=== PATIENT | female | born 1960 | race Caucasian/White ===

== ENCOUNTER → 2016-11-03 | Outpatient (CLI) | payer BC ==
[~2016-11-03] MED LIST: ADVAIR 100/28 DISKUS IH; ALLEGRA60 MG PO; CALCIUM 600MG+D1 TAB PO; ESCITALOPRAM; ESTROVAN; FISH OIL CONC1000 MG PO; NORCO 325 MG-51 TAB PO; PHENERGAN 25 TA25 MG PO; PROVENTIL0.09 MG/A1 IH; SINGULAIR10 MG PO; VENTOLIN0.09 MG IH; VIT D; [UNRECOGNIZED DRUG - REMARK]
== END ==
LOC: MC.RAD 07:54
DX: Z12.31 Encounter for screening mammogram for malignant neoplasm of breast (principal)

== ENCOUNTER 2017-02-21 00:11 | Observation (INO) | payer BC ==
[2017-02-21] VITALS (8 sets, daily range): BP systolic 81–101; BP diastolic 41–62; PULSE 63–86; TEMP 97.3–98.9
[~2017-02-21] VITALS: Ht 170.2 cm; Wt 63.0 kg
[~2017-02-21 00:11] MED LIST changes: -CALCIUM 600MG+D1 TAB PO
[2017-02-21 01:15] LABS: BASO % 0.4 % (0.0-2.0); EOS # 0.2 (0.0-0.7); EOS % 1.6 % (0-4.0); GRAN # 7.8 (1.4-6.5); GRAN % 82.2 % (42.2-75.2); HEMOGLOBIN 13.9 g/dl (12.5-16.0); LYMPH # 1.2 (1.2-3.4); LYMPH % 12.8 % (20.0-51.0); MEAN CELL VOLUME 89 fl (80.0-100.0); MEAN CORPUSCULAR HEMOGLOBIN 30 pg (27.0-31.0); MEAN CORPUSCULAR HGB CONC 34 g/dl (33.0-37.0); MEAN PLATELET VOLUME 10.2 fl (7.4-10.4); MONO # 0.3 (0.1-0.6); MONO % 2.7 % (1.7-9.3); PLATELET COUNT 195 K/mm3 (130-400); RED BLOOD COUNT 4.62 M/mm3 (4.10-5.30); REDCELL DISTRIBUTION WIDTH-CV 12.6 % (11.5-14.5); WHITE BLOOD COUNT 9.4 K/mm3 (4.8-10.8)
[2017-02-21 01:23] LABS: ADJUSTED CALCIUM 8.7 mg/dL (8.4-10.2); ALBUMIN 4.4 gm/dL (3.5-5.0); BILIRUBIN,TOTAL 0.7 mg/dL (0.0-1.0); CREATININE, serum 0.78 mg/dL (0.52-1.25); POTASSIUM 4.3 mmol/L (3.4-5.0); TOTAL PROTEIN 7.8 gm/dL (6.4-8.2)
[2017-02-21 03:14] LABS: PH 6 (5-8); URINE APPEARANCE Cloudy; URINE BILIRUBIN Negative (NEGATIVE); URINE BLOOD 3+ (NEGATIVE); URINE COLOR Yellow; URINE GLUCOSE Negative (NEGATIVE); URINE KETONE 2+ (NEGATIVE); URINE UROBILINOGEN Negative (NEGATIVE)
[2017-02-21 03:15] LABS: URINE WBC 0-2 /hpf
[2017-02-21 03:16] LABS: URINE RBC 20-50 /hpf
[2017-02-21] MEDS ORDERED: CALCIUM 600MG+D1 TAB PO (04:23)
== END 2017-02-21 19:55 | disposition home or self-care (01) ==
LOC: COL.ER 00:11 → SURG 03:02
PROVIDERS: Emergency Medicine
DX: N20.1 Calculus of ureter (principal); J45.909 Unspecified asthma, uncomplicated; F41.9 Anxiety disorder, unspecified; R11.0 Nausea
CPT/HCPCS: C1769; C1894; C2617; G0378; J0690; J1100; J1885; J2270; J2405; J2704; J3010; J7030; Q9967

== ENCOUNTER → 2018-05-22 | Outpatient (CLI) | payer BC ==
[~2018-05-22] MED LIST changes: +CALCIUM 600MG+D1 TAB PO
== END ==
LOC: COL.RAD 07:06
DX: K76.0 Fatty (change of) liver, not elsewhere classified (principal)

== ENCOUNTER → 2018-06-16 | Outpatient (CLI) | payer BC | LOC: COL.RAD 06:57 | DX: K76.0 Fatty (change of) liver, not elsewhere classified (principal); R19.7 Diarrhea, unspecified | CPT/HCPCS: A9537 ==

== ENCOUNTER 2020-08-24 10:07 | Inpatient (IN) | payer BC ==
[~2020-08-24] VITALS: Ht 167.6 cm; Wt 61.0 kg
[2020-08-24 10:32] LABS: COLLECTION METHOD CLEAN CATCH
[2020-08-24 10:39] LABS: BASO % 0.2 % (0.0-2.0); EOS # 0.1 (0.0-0.7); EOS % 0.8 % (0-4.0); GRAN # 13.7 (1.4-6.5); GRAN % 81.7 % (42.2-75.2); HEMOGLOBIN 15.4 g/dl (12.5-16.0); LYMPH % 11.9 % (20.0-51.0); MEAN CELL VOLUME 88 fl (80.0-100.0); MEAN CORPUSCULAR HEMOGLOBIN 30 pg (27.0-31.0); MEAN CORPUSCULAR HGB CONC 34 g/dl (33.0-37.0); MEAN PLATELET VOLUME 9.6 fl (7.4-10.4); MONO # 0.9 (0.1-0.6); MONO % 5.1 % (1.7-9.3); PLATELET COUNT 300 K/mm3 (130-400); RED BLOOD COUNT 5.21 M/mm3 (4.10-5.30); REDCELL DISTRIBUTION WIDTH-CV 12.9 % (11.5-14.5)
[2020-08-24] MEDS ORDERED: MERIBIN5 MG PO (10:42)
[2020-08-24 10:43] LABS: MUCOUS Present /lpf; PH 6 (5-8); SQUAMOUS EPITHELIAL 0-2 /hpf; URINE APPEARANCE Hazy; URINE BACTERIA None Seen /hpf; URINE BILIRUBIN Negative (NEGATIVE); URINE BLOOD 1+ (NEGATIVE); URINE COLOR Yellow; URINE GLUCOSE Negative (NEGATIVE); URINE KETONE Negative (NEGATIVE); URINE LEUKOCYTE ESTERASE Negative (NEGATIVE); URINE NITRATE Negative (NEGATIVE); URINE PROTEIN(semi-quant) 1+ (NEGATIVE); URINE UROBILINOGEN Negative (NEGATIVE)
[2020-08-24 10:48] LABS: ALBUMIN 4.6 gm/dL (3.5-5.0); BILIRUBIN,TOTAL 1.1 mg/dL (0.0-1.0); CALCIUM 9.1 mg/dL (8.4-10.2); CREATININE, serum 0.91 (0.52-1.25); POTASSIUM 3.9 mmol/L (3.4-5.0); TOTAL PROTEIN 7.7 gm/dL (6.4-8.2)
[2020-08-24 13:15] VITALS: BP 92/56; PULSE 64; TEMP 97.6
[2020-08-24 15:20] VITALS: BP 95/56; PULSE 88; TEMP 98.4
--- NOTE | 2020-08-24 17:18 | NUR ---
PT TRANSFERRED VIA WC BY ED NURSE TO ROOM 322. PT ORIENTED TO ROOM BY THIS NURSE, PT UP TO RESTROOM AT THIS TIME. REPORTED PAIN OF 4/10 AND RATED THIS TOLERABLE. WARM BLANKET AND CALL LIGHT GIVEN. ORDERS FOR FLUIDS AND ABX TO BE HUNG, IV MORPHINE 2 MG GIVEN AT THIS TIME. PT LATER REPORTS PAIN OF 2/10.
[2020-08-24 19:27] VITALS: BP 88/54; PULSE 98; TEMP 98.6
--- NOTE | 2020-08-24 22:00 | NUR ---
Patient resting in bed. Patient requested morphine, given per orders. Patient has no other complaints.
[2020-08-24 23:26] VITALS: BP 82/41; PULSE 101; TEMP 98.7
--- NOTE | 2020-08-25 00:30 | NUR ---
Patient reports nausea. Gave zofran per orders.
[2020-08-25 01:59] VITALS: BP 102/59
[2020-08-25 03:50] VITALS: BP 88/49; PULSE 98; TEMP 98.4
[2020-08-25 06:53] LABS: BASO % 0.3 % (0.0-2.0); EOS # 0.2 (0.0-0.7); EOS % 1.1 % (0-4.0); GRAN # 12.5 (1.4-6.5); GRAN % 79.1 % (42.2-75.2); HEMATOCRIT 38.4 % (37.0-47.0); LYMPH # 1.8 (1.2-3.4); LYMPH % 11.3 % (20.0-51.0); MEAN CELL VOLUME 90 fl (80.0-100.0); MEAN CORPUSCULAR HEMOGLOBIN 31 pg (27.0-31.0); MEAN CORPUSCULAR HGB CONC 34 g/dl (33.0-37.0); MEAN PLATELET VOLUME 9.9 fl (7.4-10.4); MONO # 1.2 (0.1-0.6); MONO % 7.8 % (1.7-9.3); PLATELET COUNT 212 K/mm3 (130-400); RED BLOOD COUNT 4.26 M/mm3 (4.10-5.30); REDCELL DISTRIBUTION WIDTH-CV 12.9 % (11.5-14.5)
[2020-08-25 06:59] VITALS: BP 94/55; PULSE 95; TEMP 98.2
[2020-08-25 07:06] LABS: ALBUMIN 3.7 gm/dL (3.5-5.0); BILIRUBIN,TOTAL 0.7 mg/dL (0.0-1.0); CALCIUM 8.3 mg/dL (8.4-10.2); CREATININE, serum 0.86 (0.52-1.25); POTASSIUM 3.8 mmol/L (3.4-5.0); TOTAL PROTEIN 6.6 gm/dL (6.4-8.2)
--- NOTE | 2020-08-25 08:00 | NUR ---
Patient resting in bed at this time. Patient rouses easily and is alert and oriented, answers questions appropriately while awake. Patient c/o some epigastric pain and a headache. Administered PRN tylenol for the headache and patient stated she wanted to wait on the morphine. Also administered PRN zofran per patient request. Patient denies further needs, call light within reach.
--- NOTE | 2020-08-25 10:36 | NUR ---
LEEANNE met with the patient to discuss discharge plan. The patient lives in [place] with her , Antonio (ph#[phone]) and their son. She reports independence with ADLs and does not have any DME. The patient's PCP is Dr. Rossana Miranda and she receives her medications from [facility]. She reports no difficulties obtaining her meds. The patient does not have a DPOA-HC, but she was interested in obtaining a form. LEEANNE provided. The patient plans to return home with her family upon discharge. LEEANNE contacted and reviewed the d/c plan with he patient's , Antonio. He had no questions or concerns about the patient returning home upon discharge. No additional needs at this time.
[2020-08-25 11:07] VITALS: BP 89/46; PULSE 79; TEMP 98
[2020-08-25 16:20] VITALS: BP 107/58; PULSE 83; TEMP 97.6
--- NOTE | 2020-08-25 18:32 | NUR ---
Patient resting in bed, at bedside. Patient remains alert and oriented. Administered PRN pain and nausea medication per patient request. Patient denies further needs, call light within reach.
[2020-08-25 19:17] VITALS: BP 102/54; PULSE 85; TEMP 97.2
--- NOTE | 2020-08-25 19:36 | NUR ---
Resting in bed. Assessment complete. Lungs clear. Heart sounds normal. Bowels active x4. Pulses present throughout. No edema noted. IV right AC infusing without complications. Reports 6/10 ABD pain. Given PRN morphine at this time. Denies other needs. Call light in reach.
[2020-08-26] VITALS (7 sets, daily range): BP systolic 100–110; BP diastolic 51–61; PULSE 81–92; TEMP 97.9–99
--- NOTE | 2020-08-26 00:11 | NUR ---
Provided with PRN zofran and tylenol for nausea and "discomfort" of 6/10 at this time. Denies other needs. Will monitor.
--- NOTE | 2020-08-26 05:46 | NUR ---
Patient required PRN tylenol, morphine, and zofran. Denies pain this AM. Otherwise uneventful night. Resting in bed this AM. Call light in reach.
--- NOTE | 2020-08-26 07:21 | NUR ---
Report given to GILBERTO Nair
[2020-08-26 07:57] LABS: BASO % 0.3 % (0.0-2.0); EOS # 0.5 (0.0-0.7); EOS % 4.2 % (0-4.0); GRAN # 9.7 (1.4-6.5); GRAN % 76.1 % (42.2-75.2); HEMATOCRIT 37.3 % (37.0-47.0); HEMOGLOBIN 12.4 g/dl (12.5-16.0); LYMPH # 1.4 (1.2-3.4); LYMPH % 11.1 % (20.0-51.0); MEAN CELL VOLUME 90 fl (80.0-100.0); MEAN CORPUSCULAR HEMOGLOBIN 30 pg (27.0-31.0); MEAN CORPUSCULAR HGB CONC 33 g/dl (33.0-37.0); MEAN PLATELET VOLUME 10.3 fl (7.4-10.4); PLATELET COUNT 182 K/mm3 (130-400); RED BLOOD COUNT 4.13 M/mm3 (4.10-5.30); REDCELL DISTRIBUTION WIDTH-CV 12.8 % (11.5-14.5)
--- NOTE | 2020-08-26 08:00 | NUR ---
Patient resting in bed at this time. Patient reports pain and nausea are well controlled at this time. IVF infusing per order. Patient is tolerating small amounts of clear liquids well. Denies further needs, call light within reach.
[2020-08-26 08:03] LABS: ALBUMIN 3.6 gm/dL (3.5-5.0); BILIRUBIN,TOTAL 0.7 mg/dL (0.0-1.0); CALCIUM 8.3 mg/dL (8.4-10.2); CREATININE, serum 0.71 (0.52-1.25); POTASSIUM 3.5 mmol/L (3.4-5.0); TOTAL PROTEIN 6.4 gm/dL (6.4-8.2)
--- NOTE | 2020-08-26 10:06 | NUR ---
Initial visit; Patient thanked Phlebotomist for looking in on her and requested that Phlebotomist keep her in her prayers. Phlebotomist offered God's blessings.
--- NOTE | 2020-08-26 17:38 | NUR ---
Patient in bedside recliner eating dinner at this time. Patient has had no complaints of pain or nausea today. Patient has ambulated several times in the hallway, and is planning to shower independently after she finishes with dinner. Denies furthe needs at this time, call light within reach.
--- NOTE | 2020-08-26 21:45 | NUR ---
Pt. sitting up in bed at this time. Pt. is A&OX3, assessment complete. IV to rt. ac patent, IV fluids infusing per orders. Pt. reports abd. pain at a 2 and nausea, giving meds per orders. Pt. denies further needs, call light within reach.
[2020-08-27 04:04] VITALS: BP 123/74; PULSE 75; TEMP 98.5
[2020-08-27 06:41] LABS: ALBUMIN 2.9 gm/dL (3.5-5.0); BILIRUBIN,TOTAL 0.5 mg/dL (0.0-1.0); CREATININE, serum 0.66 (0.52-1.25); POTASSIUM 3.3 mmol/L (3.4-5.0); TOTAL PROTEIN 5.6 gm/dL (6.4-8.2)
[2020-08-27 08:30] VITALS: BP 112/62; PULSE 84; TEMP 97.5
[2020-08-27 12:31] VITALS: BP 108/56; PULSE 88; TEMP 98
[2020-08-27 16:00] VITALS: BP 112/57; PULSE 81; TEMP 98.1
--- NOTE | 2020-08-27 17:39 | NUR ---
Patient resting in bedside recliner eating dinner at this time. IVF continue per order. Patient has ambulated in the halls several times today, no c/o pain or nausea. Patient denies needs at this time, call light within reach.
[2020-08-27 19:03] VITALS: BP 113/63; PULSE 86; TEMP 98.4
--- NOTE | 2020-08-27 20:00 | NUR ---
Report received, assumed care for usability specialist. Assessment complete. VS stable. A&Ox3. Denies pain/shortness of breath. Rating pain 3/10 on pain scale-described as intermittent cramping-denies needing intervention. Tolerating clear liquid diet. +flatus. Has been ambulating in hallways. Plan of care discussed for this shift to include HS meds/pain meds/calling for questions/concerns. Denies current needs. Call light in reach. Will monitor.
[2020-08-27 23:29] VITALS: BP 111/57; PULSE 79; TEMP 98.1
--- NOTE | 2020-08-28 00:43 | NUR ---
Resting eyes closed. No s/s of pain noted.
[2020-08-28 03:22] VITALS: BP 116/59; PULSE 78; TEMP 97.8
--- NOTE | 2020-08-28 05:27 | NUR ---
Rested well this shift. States she feels better this AM than she has the last week. Denies pain. States she has a little bit of nausea but states she doesnt want any zofran right now. Denies questions/concerns. Call light in reach. Will monitor.
[2020-08-28 06:33] LABS: BASO % 0.5 % (0.0-2.0); EOS # 0.5 (0.0-0.7); EOS % 5.3 % (0-4.0); GRAN # 5.9 (1.4-6.5); GRAN % 67.7 % (42.2-75.2); HEMOGLOBIN 11.2 g/dl (12.5-16.0); LYMPH # 1.6 (1.2-3.4); LYMPH % 18.6 % (20.0-51.0); MEAN CELL VOLUME 90 fl (80.0-100.0); MEAN CORPUSCULAR HEMOGLOBIN 29 pg (27.0-31.0); MEAN CORPUSCULAR HGB CONC 33 g/dl (33.0-37.0); MEAN PLATELET VOLUME 9.6 fl (7.4-10.4); MONO # 0.7 (0.1-0.6); MONO % 7.7 % (1.7-9.3); PLATELET COUNT 207 K/mm3 (130-400); RED BLOOD COUNT 3.81 M/mm3 (4.10-5.30); REDCELL DISTRIBUTION WIDTH-CV 12.7 % (11.5-14.5)
[2020-08-28 06:35] LABS: HEMATOCRIT 34.2 % (37.0-47.0)
[2020-08-28 06:45] LABS: ALBUMIN 3.1 gm/dL (3.5-5.0); BILIRUBIN,TOTAL 0.5 mg/dL (0.0-1.0); CALCIUM 8.3 mg/dL (8.4-10.2); CREATININE, serum 0.66 (0.52-1.25); POTASSIUM 3.7 mmol/L (3.4-5.0); TOTAL PROTEIN 5.9 gm/dL (6.4-8.2)
[2020-08-28 07:50] VITALS: BP 107/51; PULSE 85; TEMP 98.9
--- NOTE | 2020-08-28 10:21 | NUR ---
PT INDEPENDENT IN ROOM AND HALLS. PT WEARING MASK WHEN OUT OF ROOM. IV TO RAC INFILTRATED AND NEW SITE OBTAINED TO R HAND. 20 GA PT TOLERATED WELL.
[2020-08-28 11:38] VITALS: BP 103/62; PULSE 82; TEMP 97.9
[2020-08-28 15:25] VITALS: BP 99/58; PULSE 87; TEMP 98.6
--- NOTE | 2020-08-28 20:30 | NUR ---
Pt. sitting up in bed at this time. Pt. is A&OX3, assessment complete. IV to rt. hand patent, IV fluids infusing per orders. Pt. denies pain or other needs, call light within reach.
[2020-08-28 20:32] VITALS: BP 102/52; PULSE 85; TEMP 98.2
[2020-08-29] VITALS (12 sets, daily range): BP systolic 92–113; BP diastolic 55–66; PULSE 75–91; TEMP 97.5–98.7
--- NOTE | 2020-08-29 11:19 | NUR ---
LR TO GRAVITY FLOW TUBING. PATIENT CONSENT FORM ON CHART. PATIENT TAKEN TO [facility] VIA BED BY GILBERTO BLAIR. WILL WAIT FOR PATIENT ARRIVAL BACK TO ROOM 322-2.
--- NOTE | 2020-08-29 13:20 | NUR ---
PATIENT ARRIVED BACK TO ROOM 322-2 FROM PACU. VSS. WILL CONTINUE TO MONITOR.
--- NOTE | 2020-08-29 13:50 | NUR ---
ABDOMINAL LAP SITES X3 DRESSED WITH BANDAIDS AND ARE CD&I. POST-OP VSS. PATIENT TOLERATING SIPS AND CHIPS. PATIENT DENIES COMPLAINTS OF PAIN. PATIENT AMBULATED WITH STAFF TO BATHROOM. PATIENT VOIDING SUFFICIENTLY. PATIENT RECONNECTED TO POST-OP MONITORING. SCD'S TO BLE. CALL LIGHT WITHIN REACH.
--- NOTE | 2020-08-29 17:05 | NUR ---
PATIENT TOLERATING A GENERAL DIET WITHOUT COMPLAINTS OF PAIN, NAUSEA OR VOMITING. POST-OP VITALS STABLE AND COMPLETE. PATIENT DENIES NEEDS AT THIS TIME.
--- NOTE | 2020-08-29 19:00 | NUR ---
BEDSIDE REPORT GIVEN TO GILBERTO YANEZ.
--- NOTE | 2020-08-29 20:40 | NUR ---
Pt. sitting up in bed. Pt. is A&OX3, assessment complete. INT to rt. hand patent. Pt. reported pain at a 4 on pain scale, gave pain meds per orders. Pt. denies further needs, call light within reach.
[2020-08-30 00:51] VITALS: BP 94/53; PULSE 70; TEMP 97.7
[2020-08-30 04:15] VITALS: BP 100/60; PULSE 78; TEMP 97.4
[2020-08-30 06:10] LABS: ALBUMIN 3.5 gm/dL (3.5-5.0); BILIRUBIN,TOTAL 0.4 mg/dL (0.0-1.0); CALCIUM 8.6 mg/dL (8.4-10.2); CREATININE, serum 0.8 (0.52-1.25); POTASSIUM 4.2 mmol/L (3.4-5.0); TOTAL PROTEIN 6.5 gm/dL (6.4-8.2)
[2020-08-30 07:39] VITALS: BP 97/57; PULSE 85; TEMP 97.8
--- NOTE | 2020-08-30 09:00 | NUR ---
Patient alert and oriented, answers questions appropriately. See assessment. Abdomen soft, non tender, non distended. Bowel sounds active x4 quads. +Flatus. +Bowel movement. Urinating adequate amounts. Lap sites to abdomen with edges well approximated, no redness or drainage noted. Post op exercises reviewed with patient. No c/o at this time.
--- NOTE | 2020-08-30 10:33 | NUR ---
Discharge instructions reviewed with patient, verbalized understanding. Discharged via wheelchair to auto/home with spouse at 1033.
== END 2020-08-30 10:33 | disposition home or self-care (01) | DRG 419 ==
LOC: COL.ER 10:07 → SURG 11:41
PROVIDERS: Emergency Medicine; Surgery; ADMIT Surgery
PROC: BF121ZZ Fluoroscopy of Gallbladder using Low Osmolar Contrast (ICD-10-PCS; 2020-08-29)
PROC: 0FT44ZZ Resection of Gallbladder, Percutaneous Endoscopic Approach (ICD-10-PCS; principal; 2020-08-29 11:00)
DX: K85.10 Biliary acute pancreatitis without necrosis or infection (principal); E78.5 Hyperlipidemia, unspecified; J45.909 Unspecified asthma, uncomplicated
CPT/HCPCS: OP; G0378; J0690; J1100; J1885; J1956; J2270; J2405; J2704; J2710; J3010; J3480; J7042; Q9967

== ENCOUNTER 2021-03-15 15:28 | Emergency (ER) | payer BC ==
[~2021-03-15] VITALS: Ht 167.6 cm; Wt 61.8 kg
[~2021-03-15 15:28] MED LIST changes: +MERIBIN5 MG PO
[2021-03-15 16:00] VITALS: TEMP 97.8
[2021-03-15 17:49] LABS: COLLECTION METHOD CLEAN CATCH
[2021-03-15] MEDS ORDERED: ZOFRAN ODT4 MG PO (17:49)
[2021-03-15] MEDS ORDERED: PERCOCET 325 MG1 TA2 PO (17:49)
[2021-03-15 17:57] LABS: BASO # 0.1 (0.0-0.2); BASO % 0.7 % (0.0-2.0); EOS # 0.1 (0.0-0.7); EOS % 1.2 % (0-4.0); GRAN # 7.3 (1.4-6.5); GRAN % 79.9 % (42.2-75.2); HEMATOCRIT 44.5 % (37.0-47.0); HEMOGLOBIN 14.5 g/dl (12.5-16.0); LYMPH # 1.3 (1.2-3.4); LYMPH % 14.5 % (20.0-51.0); MEAN CELL VOLUME 90 fl (80.0-100.0); MEAN CORPUSCULAR HEMOGLOBIN 29 pg (27.0-31.0); MEAN CORPUSCULAR HGB CONC 33 g/dl (33.0-37.0); MEAN PLATELET VOLUME 9.7 fl (7.4-10.4); MONO # 0.3 (0.1-0.6); MONO % 3.4 % (1.7-9.3); PLATELET COUNT 261 K/mm3 (130-400); RED BLOOD COUNT 4.94 M/mm3 (4.10-5.30); REDCELL DISTRIBUTION WIDTH-CV 12.9 % (11.5-14.5)
[2021-03-15 17:58] LABS: MUCOUS Present /lpf; PH 6 (5-8); SQUAMOUS EPITHELIAL 0-2 /hpf; URINE APPEARANCE Clear; URINE BACTERIA None Seen /hpf; URINE BILIRUBIN Negative (NEGATIVE); URINE BLOOD 1+ (NEGATIVE); URINE COLOR Yellow; URINE GLUCOSE Negative (NEGATIVE); URINE KETONE 1+ (NEGATIVE); URINE LEUKOCYTE ESTERASE Negative (NEGATIVE); URINE NITRATE Negative (NEGATIVE); URINE PROTEIN(semi-quant) Negative (NEGATIVE); URINE RBC 20-50 /hpf
[2021-03-15 18:09] LABS: ALBUMIN 4.7 gm/dL (3.5-5.0); BILIRUBIN,TOTAL 0.5 mg/dL (0.0-1.0); CALCIUM 9.5 mg/dL (8.4-10.2); CREATININE, serum 0.75 (0.52-1.25); POTASSIUM 4.2 mmol/L (3.4-5.0); TOTAL PROTEIN 8.6 gm/dL (6.4-8.2)
[2021-03-15 18:35] VITALS: BP 130/78; PULSE 87
== END 2021-03-15 18:40 | disposition home or self-care (01) ==
LOC: COL.ER 15:28
PROVIDERS: Nurse Practitioner Primary Care; Personal Emergency Response Attendant
DX: N23 Unspecified renal colic (principal); Z87.442 Personal history of urinary calculi; Z88.1 Allergy status to other antibiotic agents; Z88.2 Allergy status to sulfonamides
CPT/HCPCS: J7030

== ENCOUNTER → 2021-03-23 | Outpatient (CLI) | payer BC ==
[~2021-03-23] MED LIST changes: +PERCOCET 325 MG1 TA2 PO; +ZOFRAN ODT4 MG PO
== END ==
LOC: COL.RAD 09:58
DX: N20.0 Calculus of kidney (principal)
CPT/HCPCS: Q9967

== ENCOUNTER → 2021-05-20 | Outpatient (CLI) | payer BC | LOC: MC.RAD 10:12 | DX: Z12.31 Encounter for screening mammogram for malignant neoplasm of breast (principal) ==